=== PATIENT | female | born 1985 | race Caucasian/White ===

== ENCOUNTER 2017-05-09 11:52 | Observation (INO) | payer MEDICAID ==
[2017-05-09 13:33] LABS: PLATELET COUNT 162 10^3/uL (150-400)
--- NOTE | 2017-05-09 19:05 | GHP ---
[f rep st] PREOP HISTORY AND PHYSICAL DATE OF ADMISSION: 05/09/2017 ADMISSION DIAGNOSIS: Intrauterine at 34 and 1/7 weeks' gestation, with edema and leaking fluid, rule out rupture of membranes. INDICATIONS: Patient is a 31-year-old 10, para 2-0-7-2, who is 34 and 1 /7 weeks' gestation. Her estimated date of confinement is 06/19/2017, dated by a last menstrual period of 10/27/2016, consistent with a 6-week ultrasound. Patient has been receiving care in [place], and has recently relocated back to [place]. She had her care with her 1st at [facility] and [facility] in 2012. Patient has been receiving regular care in [place] and has an appointment to reestablish care with [facility] on . Patient just moved back from [place] last week. She called the office complaining of increased swelling and occasional blurry vision. She denied any nausea or vomiting. She also states that she has been having increased discharge and leaking fluid. She was instructed to proceed to Labor and Delivery but patient stated she was too busy and she called the office back today complaining of persistent increased discharge and swelling and did present to Labor and Delivery for an evaluation. Patient's blood pressures were stable. Her labs were obtained which were negative. SROM check was negative and a BD affirm is still pending. Patient was evaluated and labor precautions, SROM precautions and PIH precautions were reviewed with the patient, and the patient was discharged to home. She has a followup appointment scheduled for tomorrow morning to establish care at [facility]. MEDICAL HISTORY: Significant for anxiety and depression and OCD, questionable history of polycystic ovarian syndrome. She is GDM A2, on insulin with this current . History of pyelonephritis. MEDICATIONS: vitamin, insulin. SURGICAL HISTORY: section x2. Appendectomy. Right oophorectomy. [place] teeth extraction. Tonsillectomy and adenoidectomy. ALLERGIES: Codeine, which causes hives. SOCIAL HISTORY: Patient is . She lives with her and their 2 other children. She quit smoking with this positive test. She denies any alcohol or drug use. FAMILY MEDICAL HISTORY: Noncontributory. 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 She is a 10, para 2-0-7-2. Per her most recent records, patient has had 7 miscarriages. However, per her record from [facility] in 2012, patient had a voluntary termination of in 2010 as 1 of those instead of a miscarriage. She has had 2 sections. Her 1st section was in 08/2012, at [facility] at 40 weeks after a prolonged labor. She had a repeat in 02/2015 after attempting a vaginal after section. Patient denies any history of any abnormal Pap smears. She does have a history of genital herpes. REVIEW OF SYSTEMS: A 10-point review of systems is negative with the exception of the above-mentioned pertinent positives. She states there is positive movement. She is having increased discharge. She denies any vaginal bleeding. She denies any headaches. She does have occasional blurry vision. She denies any nausea or vomiting, fevers or chills. She does feel diffuse edema on her hands, face, and feet. OBJECTIVE: VITAL SIGNS: Stable. GENERAL APPEARANCE: Alert and oriented x3. NECK: Mobile and supple. HEART: Rate is regular-regular. LUNGS: Clear to auscultation bilaterally. ABDOMEN: Gravid, obese, nondistended, nontender. EXTREMITIES: Revealed no calf tenderness or edema. MUSCULOSKELETAL: Grossly intact. Neuromuscular is grossly intact. CERVICAL: Her cervix is long and closed. Speculum exam was performed. There was scant thin watery discharge. A fern test was negative. Nitrazine test was negative. AmniSure test was negative, and a BD affirm was collected and pending. heart tracing is appropriate for gestational age. She is having occasional contractions. DATA: [facility] labs were obtained which showed hemoglobin of 11.3, hematocrit of 32. Creatinine 0.6. AST is 12, ALT is 25. Lactate dehydrogenase is 299. She did test positive for Gardnerella, but that was found after patient left, and she will be treated for that with Flagyl at her new OB visit tomorrow. ASSESSMENT AND PLAN: 31-year-old 10, para 2-0-7-2, who is 34 and 1/7 weeks' gestation, who came in for -induced hypertension and spontaneous rupture of membrane check evaluation, and patient's blood pressures are stable. -induced hypertension precautions were discussed with patient. Patient is not ruptured. She does have bad bacterial vaginosis and will be treated for this tomorrow and managed expectantly. Labor precautions, kick counts, and -induced hypertension precautions were reviewed extensively with the patient, and the patient was discharged to home. Instructed to follow up tomorrow morning as scheduled. /[id number]/MODL MTDD
== END 2017-05-09 15:52 | disposition home or self-care (01) ==
LOC: FLD 11:52
PROVIDERS: ADMIT Obstetrics & Gynecology; ATTEND Obstetrics & Gynecology
DX: O23.593 Infection of other part of genital tract in pregnancy, third trimester (principal); O99.89 Other specified diseases and conditions complicating pregnancy, childbirth and the puerperium; B96.89 Other specified bacterial agents as the cause of diseases classified elsewhere; Z3A.34 34 weeks gestation of pregnancy
CPT/HCPCS: 82947-QW; G0378

== ENCOUNTER 2017-05-20 17:43 | Observation (INO) | payer MEDICAID ==
[2017-05-20] MEDS ORDERED: FAMOTIDINE 20 MG/2 ML SDV IVP ONE (18:00)
[2017-05-20] MEDS ORDERED: ONDANSETRON 4 MG/2 ML VIAL IVP PRN (18:00)
[2017-05-20] MEDS ORDERED: LR 1,000 ML IV SCH (18:00)
--- NOTE | 2017-05-20 18:01 | PDGENHP ---
History and Physical History and Physical: HPI: Patient is a 31yo @ 35-5wks that presents to L&D with complaints of nausea, vomiting, and diarrhea since this morning. She states she has not had an episode of vomiting since 1130 and diarrhea since 0930. She states she has been having some abdominal discomfort which has been occuring x 1 week. She denies any contractions, LOF, VB. EDC: 06/19/17 which is based on Ultrasound at 8 weeks. Her is complicated by: obesity, GDM (on insulin), rh negative, prior c /s x2, smoker, HSV, KRYSTYNA @34wks Review of Systems: Constitutional: Denies any fever, chills, or fatigue HEENT: denies any visual changes, difficulty swallowing, hearing loss Cardiovascular: Denies any chest pain, palpitations, leg swelling Respiratory: denies any cough, wheezing, or shortness of breathe GI: reports + nausea, vomiting, diarrhea : denies any dysuria, urgency, frequency, vaginal bleeding Musculoskeletal: denies any muscle or bone pain Skin: denies any rashes Neuro: denies any headache, seizures, lightheadedness, dizziness, or loss of consciousness Psychiatric: denies any depression, anxiety, or SI/HI thoughts HISTORY: Previous OB history: prior c/s x2 Past medical history: rh negative, HSV Past surgical history: c/s x2 Medications: PNV, insulin Allergies (list reaction): NKDA LABS: Rh: Negative ABS: Neg Rubella: Immune HbsAg: NR HIV: NR VDRL: NR 1hr: GDM GC: Neg Chlamydia: Neg Pap: Normal GBS: unknown PHYSICAL EXAM: Constitutional: WN, A&Ox3, obese HEENT: normocephalic atraumatic, supple Heart: RRR, no murmur Chest: CTA-B Abdomen: Soft, nontender, gravid SVE: deferred Extremities: trace edema, negative homans sign Neuro: grossly normal Psych: normal affect assessment: Reassuring FHTs, baseline 135 +accels, no decels, moderate variability Contractions: toco none Assessment: 1) [id number] with IUP@35-5wks (by 8wk US) 2) no evidence of labor 3) Gastroenteritis- improved with IV fluids and antiemetics 4) Cat 1 FHR tracing Plan: 1) d/c home at this time 2) rx zofran 4mg ODT given/BRAT/bland diet x 48hours 3) keep next sched appt in office 4) PTL prec/FKC discussed 5) danger/warning signs advised- aware when to return to L&D
[2017-05-20 18:34] LABS: PLATELET COUNT 160 10^3/uL (150-400)
[2017-05-20] MEDS ORDERED: FAMOTIDINE 20 MG/NACL 50 ML IV ONE (20:30)
== END 2017-05-20 21:09 | disposition home or self-care (01) ==
LOC: FLD 17:43
PROVIDERS: ADMIT Advanced Practice Midwife; ATTEND Advanced Practice Midwife
DX: O99.613 Diseases of the digestive system complicating pregnancy, third trimester (principal); K52.9 Noninfective gastroenteritis and colitis, unspecified; O24.414 Gestational diabetes mellitus in pregnancy, insulin controlled; F17.210 Nicotine dependence, cigarettes, uncomplicated; E66.9 Obesity, unspecified; O99.333 Smoking (tobacco) complicating pregnancy, third trimester; O99.213 Obesity complicating pregnancy, third trimester; Z3A.35 35 weeks gestation of pregnancy
CPT/HCPCS: G0378 ×2; J2405

== ENCOUNTER 2017-06-12 10:00 | Inpatient (IN) | payer MEDICAID ==
--- NOTE | 2017-06-08 08:31 | GHP ---
[f rep st] HISTORY AND PHYSICAL DATE OF ADMISSION: 06/13/2017 ADMITTING DIAGNOSES: 1. Intrauterine at 39-1/7 weeks. 2. Previous x2, for repeat . 3. Gestational diabetes A2, on insulin. HISTORY OF PRESENT ILLNESS: Patient is a 32-year-old, 10 para 2-0-7-2 at 39 weeks and 1 day with estimated due date 06/19/2017 by a 6 week ultrasound. Patient has a history of x2 and presents for repeat C- section. The patient does not want her tubes removed at this time. The patient presents with no complaints. Good movement noted. Denies any contractions, leakage of fluid or vaginal bleeding. The patient is a transfer of care to [facility] at 34 weeks from [place]. Patient has gestational diabetes A2 on insulin. Pt is followed by Endo and blood sugars are better controlled. She takes 12 units of Regular and 10 units NPH in the a.m. and p.m. Quad screen was negative. The patient is Rh negative and received RhoGAM at 28 weeks. The patient does have a history of depression, currently on no medications and mood has been stable throughout the . The patient did develop anemia with , and is tolerating iron. GBS culture is negative. She received Tdap during the . PAST OBSTETRICAL HISTORY: In 2003, 2006, and 2009 she had SABs. In 2010, she had 2 SAB's. In 2011, she had another 2 SAB's, In August 2012, she had a primary at 40+ weeks and had a 70 hour labor with AOD, and delivered a viable male infant, weighing 7 pounds, 15 ounces. In February 2015, she had a repeat C- section at 39-2/7 weeks, and delivered a viable female , weighing 7 pounds , 15 ounces. She had borderline gestational diabetes with this . PAST GYNECOLOGICAL HISTORY: Age of menarche 16, cycles every 28 days for 5-6 days. test 10/27/2016. Last menstrual period 09/17/2016. Patient does not have history of abnormal Pap smears. The patient does has a history of chlamydia and gonorrhea that were treated in 2007. She also has a history of HSV 1, gets outbreaks in and has had 2 oral herpes outbreaks this . The patient does not have a history of genital lesions. The patient has endometriosis that was diagnosed in 2015 diagnosed and PCOS that was diagnosed at age 20. CURRENT MEDICATIONS: Insulin-Regular and NPH, vitamins and iron. ALLERGIES: Codeine. PAST MEDICAL HISTORY: History of pyelonephritis in 2017, history of depression. PAST SURGICAL HISTORY: [place] teeth extraction. Tonsillectomy and adenoidectomy. x2 in 2012, 2014. Appendectomy in 2012. In 1999, she had a right oophorectomy. Right ankle injury since fall in 2012, but no surgery. SOCIAL HISTORY: Patient is . She lives with her and their 2 children. Does admit to 1 - 1-1/2 pack a day smoking history since 2001, but stopped during . Denies any alcohol or illicit drug use. She did have to 2 glasses of wine prior to finding out she was . FAMILY HISTORY: Maternal grandmother with breast cancer late 40s, metastasized to bone and brain and in 60s. LABS: Blood type A negative, antibody negative. Received RhoGAM 03/16, again 10/28/2016. Early 1 hour glucose 144. RPR nonreactive. Rubella immune. Hepatitis B surface antigen negative. HIV negative. Urine culture negative. Pap negative. Chlamydia and gonorrhea cultures all negative. Quad screen negative. H and H 11.1 and 32.6. One-hour Glucola was 168. GBS culture is negative. REVIEW OF SYSTEMS: 10-point review of systems is negative. Pertinent positives noted in HPI. PHYSICAL EXAM: GENERAL: Patient is alert and oriented x3. Well-nourished, well-developed female in no apparent distress. CARDIOVASCULAR: Regular rate and rhythm. LUNGS: Clear to auscultation bilaterally. ABDOMEN: Gravid, soft , nontender, nondistended. PELVIC: Deferred. EXTREMITIES: Normal to inspection without calf tenderness or edema. ASSESSMENT/PLAN: Patient is a 32-year-old, 10, para 2-0-7-2 at 39 and 1 weeks with history of previous x2 for repeat , and gestational diabetes A2 on insulin. 1. Admit to Labor and Delivery. 2. Surgical consents are on the chart. Will review with patient at bedside to make sure she understands all complications of surgery and wants to proceed. 3. Antibiotics engineer second assistant to OR. 4. Sequential compression devices for deep venous thrombosis prophylaxis. 5. We will closely monitor blood sugars throughout the and postop and treat accordingly. /[id number]/MODL MTDD
[2017-06-13] MEDS ORDERED: LR 500 ML IV ONE (05:32)
[2017-06-13] MEDS ORDERED: ceFAZolin 2 GM/DEXTROSE 100 ML IV ONE (05:32)
[2017-06-13] MEDS ORDERED: CITRIC ACID/SODIUM CITRATE 30 ML UDCUP PO ONE (05:32)
[2017-06-13] MEDS ORDERED: LR 1,000 ML IV SCH (05:32)
[2017-06-13 06:19] LABS: PLATELET COUNT 182 10^3/uL (150-400)
--- NOTE | 2017-06-13 07:15 | PREANESOB ---
Obstetric Pre-Anesthesia Info - General Info Proposed Procedure: Repeat C Section. : 10 Para: 2 YVONNE: 06/19/17 Gestational Age: 39 week(s) and 1 day(s) - Info Status: Full Term Monitors: External FHR Baseline (bpm): 140 FHR Pattern: Reassuring (14) - Labor Status Indications for Current Section: Elective/Repeat Labor Epidural: No Anesthesia ROS: Prior spinal anesthesia with difficulty. Allergies/Adverse Reactions: Allergy/AdvReac Type Severity Reaction Status Date / Time codeine [Codeine] Allergy Itching/NICO Verified 06/13/17 05:55 H Home Medications: Medication Instructions Recorded Insulin NPH Hum/Reg Insulin Hm 12 units SQ BID 05/09/17 [Novolin 70-30 100 Unit/ml Vial] Insulin NPH Human [HumuLIN N] 8 unit SQ BID 05/09/17 Ondansetron Odt [Zofran Odt 4 mg 4 mg PO Q4 5 Days #20 tab 05/20/17 (*)] FOLIC ACID 1 PO DAILY 06/13/17 IRON PO DAILY 06/13/17 Visit Medications: Generic Name Dose Route Start Last Admin Trade Name Freq PRN Reason Stop Dose Admin Lactated Ringer's 1,000 mls @ 125 mls/hr 06/13/17 05:32 Lr IV 06/14/17 05:31 CONT QIANA Discontinued Medications Generic Name Dose Route Start Last Admin Trade Name Freq PRN Reason Stop Dose Admin Citric Acid/Sodium Citrate 30 ml 06/13/17 05:32 Bicitra PO 06/13/17 05:33 ONCALL ONE Cefazolin Sodium/Dextrose 100 mls @ 200 mls/hr 06/13/17 05:32 Ancef 2 Gm (Premix) IV 06/13/17 06:01 ONCALL ONE Protocol Lactated Ringer's 500 mls @ 0 mls/hr 06/13/17 05:32 Lr IV 06/13/17 05:33 ONCE ONE As Directed - Anesthesia History Response to Local Anesthetics: Normal Anesthesia & Operative History: No Prior Problems Family Anesthesia History: Negative - Social History Substance Use/Abuse: Denies - Vital Signs Height/Weight (Nursing): Height 157.48 cm Weight 120.202 kg - Focused Exam Neck exam: FROM Mallampati Score: Class 2 Mouth exam: normal dental/mouth exam Pulmonary: no respiratory distress Cardiovascular: regular rate and rhythym Labs: 06/13/17 05:45 Patient ABO/Rh A NEGATIVE 06/13/17 05:45 - Plan Anesthetic Plan: SAB Consent Signed and on Chart: Yes Patient/Guardian Understands and Agrees to Plan: Yes
[2017-06-13] MEDS ORDERED: fentaNYL 100 MCG/2 ML INJ ONE (07:22)
[2017-06-13] MEDS ORDERED: morphINE PF 5 MG/10 ML INJ ONE (07:22)
--- NOTE | 2017-06-13 07:39 | PDHPUP ---
History & Physical Update H&P update statement: This history and physical update is based on an assessment of the patient which was completed after admission or registration (within 24 hours), but prior to the surgery/procedure. H&P update: H&P reviewed & patient examined, no change in patient's condition since H&P completed
[2017-06-13] MEDS ORDERED: METHYLERGONOVINE MAL 0.2 MG/ML INJ ONE (07:44)
[2017-06-13] MEDS ORDERED: MISOPROSTOL 200 MCG TAB ONE (07:44)
[2017-06-13] MEDS ORDERED: PROPOFOL 200 MG/20 ML VIAL ONE (09:01)
[2017-06-13] MEDS ORDERED: DEXAMETHASONE 4 MG/ML VIAL ONE ×2 (09:02→09:03)
[2017-06-13] MEDS ORDERED: OXYTOCIN 100 UNITS/10 ML VIAL ONE (09:02)
[2017-06-13] MEDS ORDERED: PHENYLEPHRINE HCL 100 MCG/ML SYR ONE ×2 (09:02→09:22)
[2017-06-13] MEDS ORDERED: ONDANSETRON 4 MG/2 ML VIAL ONE ×2 (09:02→09:03)
--- NOTE | 2017-06-13 09:58 | POSTANESTH ---
Post Anesthetic Evaluation Cardiovascular Status: Normal, Stable, Similar to Pre-Op Cond Respiratory Status: Normal, Stable, Similar to Pre-op Cond. Level of Consciousness/Mental Status: Can Participate in Eval, Alert and Oriented Pain Control: Adequate, Prn Tx Ordered Nausea/Vomiting Control: Adequate, Prn Tx Ordered Complications Possibly Related to Anesthesia: None Noted
[2017-06-13] MEDS ORDERED: NALOXONE HCL 0.4 MG/ML INJ IVP PRN (09:59)
[2017-06-13] MEDS ORDERED: LACTULOSE 20 GM/30 ML UDCUP PO PRN (10:43)
[2017-06-13] MEDS ORDERED: MAGNESIUM HYDROXIDE 30 ML UDCUP PO PRN (10:43)
[2017-06-13] MEDS ORDERED: POLYETHYLENE GLYCOL 3350 17 GM PKT PO PRN (10:43)
[2017-06-13] MEDS ORDERED: DOCUSATE SODIUM 100 MG CAP PO PRN (10:43)
[2017-06-13] MEDS ORDERED: BISACODYL 10 MG SUPP PR PRN (10:43)
[2017-06-13] MEDS ORDERED: PROMETHAZINE HCL 25 MG/ML INJ IVP PRN (10:43)
--- NOTE | 2017-06-13 10:51 | OBDEL ---
Info Type: Repeat Presentation at Delivery: Vertex L&D Analgesia/Anesthesia Type: Spinal GBS+: No Intrapartum Medications: Generic Name Dose Route Start Last Admin Trade Name Freq PRN Reason Stop Dose Admin Lactated Ringer's 1,000 mls @ 125 mls/hr 06/13/17 05:32 06/13/17 07:34 Lr IV 06/14/17 05:31 1,000 mls CONT QIANA Administration Discontinued Medications Generic Name Dose Route Start Last Admin Trade Name Freq PRN Reason Stop Dose Admin Citric Acid/Sodium Citrate 30 ml 06/13/17 05:32 06/13/17 07:39 Bicitra PO 06/13/17 05:33 30 ml ONCALL ONE Administration Cefazolin Sodium/Dextrose 100 mls @ 200 mls/hr 06/13/17 05:32 06/13/17 07:42 Ancef 2 Gm (Premix) IV 06/13/17 06:01 100 mls ONCALL ONE Administration Protocol Lactated Ringer's 500 mls @ 0 mls/hr 06/13/17 05:32 06/13/17 07:33 Lr IV 06/13/17 05:33 500 mls ONCE ONE Administration As Directed - Care Provider Personal Vehicle Advisor/HEARING IMPAIRED TEACHER: Jennifer Manzanares - Hospital Course Intrapartum: 06/13/17 10:47 Previous c/s x 2; GDMA2 on insulin Indications for Delivery: Elective (Previous c/s x 2; GDMA2 on insulin) Vaginal Delivery - Labor and Delivery Onset of Contractions Date: 06/13/17 Onset of Contractions Time: 05:00 Operative Report - Delivery Pre-op Diagnoses: IUP @ 39 1/7 weeks with previous c/s x 2 and GDMA2 on insulin Post-op Diagnoses: IUP @ 39 1/7 weeks with previous c/s x 2 and GDMA2 on insulin History of Prior Section: Yes Number of Prior Sections: 2 Indications for Prior Section: Arrest of Dilation Indications for Current Section: Elective/Repeat Procedure: Scheduled, Low Transverse Surgeon: Josseline Hensley Spa Consultant: Mary Dale Anesthesiologist: Raza Saini Complications: Nucal Cord (loose x 1, slipped over head) Findings: A viable male born at 0850 in cephalic presentation with 8 and 9 Apgars weighing 3512 gms. Nuchal cord x 1-loose and slipped over head. Cord clamping was delayed x 60 sec and then clamped x 2 and cut. to [facility]. Cord blood was obtained. Placenta delivered spontaneously intact with 3-vc. Grossly normal appearing uterus, L tube and L ovary. A thin WOODY noted especially posteriorly near bladder. Specimen(s)/Path: Other (Specify) (none) IV Fluid (ml): 4,000 EBL: 800 cc UO: 75 cc clear urine [place] Data YVONNE: 06/19/17 Gestational Age: 39 week(s) and 1 day(s) [place] Delivery Date: 06/13/17 Delivery Time: 08:50 Sex of Infant: Male Weight (gm): 3512 g Score (1 Min): 8 Score (5 Min): 9 ICD10 Worksheet Patient Problems: Problems Problem Status Onset GDM, class A2 Acute Previous delivery affecting Acute Status post repeat low transverse section Acute Gestational diabetes mellitus (GDM) Acute
[2017-06-13] MEDS ORDERED: KETOROLAC 30 MG/1 ML SDV ONE (11:08)
[2017-06-13] MEDS: KETOROLAC 30 MG/1 ML SDV IVP PRN ×3 (11:09→22:58)
[2017-06-13] MEDS: ONDANSETRON 4 MG/2 ML VIAL IVP PRN ×2 (13:31→17:18)
--- NOTE | 2017-06-13 14:38 | GOP ---
[f rep st] OPERATIVE REPORT DATE OF OPERATION: 06/13/2017 SURGEON: Josseline Hensley DO SOCK KNITTING MACHINE OPERATOR: Mary Dale MD. ANESTHESIA: Spinal anesthesia. ANESTHESIOLOGIST: Raza Saini MD. PREOPERATIVE DIAGNOSIS: Intrauterine at 39-1/7 weeks gestation with previous x2; and gestational diabetes mellitus, A2, on insulin. POSTOPERATIVE DIAGNOSIS: Intrauterine at 39-1/7 weeks gestation with previous x2; and gestational diabetes mellitus, A2, on insulin. PROCEDURE PERFORMED: A repeat low transverse section. FINDINGS: A viable male in cephalic presentation born at 8:50 a.m. with 8/9 Apgars, weighing 3512 g. Nuchal cord x1, loose and slipped over head. Cord clamping was delayed for 60 seconds, then clamped x2, and cut. Infant to awaiting nurse practitioner. Cord blood was obtained. Placenta delivered spontaneously intact with 3-vessel cord. A grossly normal-appearing uterus, b/l tube and left ovary. Thin lower segment noted, especially posteriorly near the bladder. ESTIMATED BLOOD LOSS: 800 cc. INDICATIONS: Patient is a 32-year-old, 10, para 2-0-7-2, at 39 weeks and 1 day with estimated due date 06/19/2017 by 6-week ultrasound. Patient has a history of x2. Presents for a repeat . Patient does want her tubes removed at this time. Patient has Gestational diabetes A2, on insulin. She is followed by Endo, and blood sugars are well-controlled. She takes both 12 units of regular, 10 units of NPH in the morning and at night. The patient declines a trial of labor and desires a repeat . We discussed risks, benefits, alternatives with the patient including, but not limited to, bleeding, infection, damage to surrounding organs. Patient understands all risks at this time, wants to proceed with surgery. DESCRIPTION OF PROCEDURE: Patient was taken to the operating room, where she was given spinal anesthesia with some difficulty, also with the aid of propofol. She was prepped, draped in the usual sterile manner, and placed in supine position with leftward tilt. There was a large pannus that we taped to allow better visualization of the previous Pfannenstiel skin incision. Caceres catheter was placed in her bladder at this time. After adequate anesthesia was assured, a new Pfannenstiel skin incision was made just above the old scar for better wound healing. This was made with a scalpel, and carried down to layer of fascia with the Bovie. The fascia was then incised in midline. The fascial incision was extended laterally with Iyer scissors. Superior aspect of the fascial incision was grasped with Chris clamps, elevated, and rectus muscles dissected off sharply. The inferior aspect of the fascial incision was then grasped with Chris clamps, elevated, and rectus muscles dissected off sharply. Rectus muscles were then in the midline. Peritoneum was then visualized, entered both sharply and bluntly, extended superiorly and inferiorly with good visualization of the bladder. Bladder blade was then inserted. We visualized the vesicouterine peritoneum and had good visualization of the bladder. A bladder flap was not created. Bladder blade was reinserted. A low transverse uterine incision was then made with a knife. Incision was extended anteriorly and posterior digitally. There was clear amniotic fluid noted upon entry of the amniotic sac. Baby was noted to be in cephalic presentation. Head was delivered after loose nuchal cord was slipped over the had followed by the shoulders. Mouth and nose were bulb-suctioned. Cord clamping was delayed for 60 seconds, then clamped x2 and cut. Infant handed off to awaiting nurse practitioner. Cord blood was obtained. Placenta was then removed spontaneously intact with 3-vessel cord. Uterus was exteriorized, cleared of all clots and debris. Uterine incision was then repaired with 0 Vicryl in a running, locked fashion. Hemostasis was noted. A 2nd imbricating layer of sutures was performed with 0 Vicryl. Hemostasis was noted. Uterus was then returned to the abdomen. Gutters were cleared of all clots and debris. Reinspection of the uterine incision revealed slight oozing, so at this point, a [id number] stitch of 0 Vicryl, as well as Shanita was placed, and hemostasis was achieved. The rectus muscles were then reapproximated with 3-0 Vicryl in an inverted mattress fashion. The fascia was then closed with 0 Vicryl in a running fashion. Hemostasis was noted. The skin was then closed with 4-0 Vicryl on a Hammad needle. Mastisol and Steri- Strips were applied. Patient tolerated the procedure well. No complications noted. Sponge, lap, needle, and instrument counts correct x2. Patient was then taken to recovery room in stable condition. IV FLUIDS: 4000 cc of LR. URINE OUTPUT: 75 cc of clear urine at the end of the procedure. /[id number]/MODL MTDD
[2017-06-13] MEDS: SENNOSIDES/DOCUSATE SODIUM TAB PO SCH (22:07)
[2017-06-14] MEDS: KETOROLAC 30 MG/1 ML SDV IVP PRN (04:56)
--- NOTE | 2017-06-14 11:25 | OBPP ---
Progress Note Assessment/Plan: Assessment: 32 y/o POD #1 s/p Rpt LTCS doing well. Plan: Begin Bifera BID. Ambulate with assistance. Po pain meds prn. support and routine POC. 06/14/17 11:24 Subjective/ Course: 06/14/17 11:21 Pt is doing well this am. She has good pain control with Toradol and will try Ibuprofen this pm. She is trying to avoid narcotics but will take them prn. She is ambulating, voiding without difficulty and has min lochia. She showered today and denies dizziness or light headedness. Objective: 06/13/17 05:45 06/13/17 05:45 Patient ABO/Rh A NEGATIVE 06/13/17 10:58 Temp Pulse Resp BP Pulse Ox 36.4 C 71 16 101/61 92 06/14/17 08:00 06/14/17 08:00 06/14/17 08:00 06/14/17 08:00 06/14/17 05:07 Uterine Position/Fundal Height: Umbilicus -2 Uterine Tone: Firm Physical Exam - Physical Exam General Appearance: alert, no apparent distress Neck: non-tender, full range of motion, supple Respiratory: chest non-tender, lungs clear, normal breath sounds Cardiac/Chest: regular rate, rhythm Abdomen: normal bowel sounds, incision (c/d/i) Extremities: swelling (no), Georgina's sign (neg)
[2017-06-14] MEDS: IBUPROFEN 600 MG TAB PO PRN ×2 (12:28→18:55)
[2017-06-14] MEDS: HYDROCODONE/APAP 5/325 TAB PO PRN ×3 (12:28→21:19)
[2017-06-14] MEDS: SENNOSIDES/DOCUSATE SODIUM TAB PO SCH ×2 (15:28→21:19)
[2017-06-14] MEDS: IRON POLYSAC/IRON HEME 28 MG TAB PO SCH (21:18)
[2017-06-15] MEDS: HYDROCODONE/APAP 5/325 TAB PO PRN ×4 (01:27→14:31)
[2017-06-15] MEDS: IBUPROFEN 600 MG TAB PO PRN ×3 (01:27→14:24)
[2017-06-15] MEDS: SIMETHICONE 80 MG TAB CHEW PO PRN ×2 (06:10→14:57)
[2017-06-15] MEDS: IRON POLYSAC/IRON HEME 28 MG TAB PO SCH (08:01)
[2017-06-15] MEDS: SENNOSIDES/DOCUSATE SODIUM TAB PO SCH (08:01)
[2017-06-15] MEDS ORDERED: MAGNESIUM HYDROXIDE 30 ML UDCUP PO ONE (10:22)
--- NOTE | 2017-06-15 11:17 | OBGCSDC ---
General Delivery Information - General Info : 10 Para: 3 Abortions: 7 Type: Repeat L&D Analgesia/Anesthesia Type: Spinal Admission Date: 06/13/17 Labs: Patient ABO/Rh A NEGATIVE 06/13/17 10:58 Hct 26.9 % (38.0-47.0) L 06/14/17 12:30 - Hospital Course Intrapartum: 06/13/17 10:47 Previous c/s x 2; GDMA2 on insulin : 06/14/17 11:21 Pt is doing well this am. She has good pain control with Toradol and will try Ibuprofen this pm. She is trying to avoid narcotics but will take them prn. She is ambulating, voiding without difficulty and has min lochia. She showered today and denies dizziness or light headedness. 06/15/17 11:12 S) Pt doing well, reports min pain- but does state she is having intermittent RUQ pain, worse with nursing. She feels like it is gas pain. She denies any heavy bleeding. she is ambulating and voiding without difficulty. She reports having BM this morning. She is . She desires discharge home today. O) VSS, afebrile constitutional: WNWF, A&Ox3 HEENT: normocephalic, atraumatic, supple Heart: RRR, No murmur Chest: CTA-B Abdomen: Soft, nontender Uterus: Firm at U-2 Lochia: Minimal rubra Perineum: Intact, healing well Extremities: Trace edema, and negative Georgina's sign Neuro: Grossly normal A) 32-year-old S/P PPD#2 P) Discharge home today Continue Pelvic rest x6wks Discussed danger signs (infection, preeclampsia, depression, heavy bleeding, etc ) RTO in 4/6 weeks 06/15/17 19:22 - Delivery Providers Surgeon: Josseline Hensley Net Repairer: [place] Anesthesiologist: Raza Saini - Delivery Number of Prior Sections: 2 Indications for Current Section: Elective/Repeat Surgical Procedures: Scheduled, Low Transverse Intra-op Complications: Nucal Cord (loose x 1, slipped over head) EBL: 800 cc UO: 75 cc clear urine Vass Data YVONNE: 06/19/17 Gestational Age: 39 week(s) and 3 day(s) [place] Delivery Date: 06/13/17 Delivery Time: 08:50 Sex of Infant: Male Weight (gm): 3512 g Score (1 Min): 8 Score (5 Min): 9 Discharge Information - Discharge Information Prescriptions: Ibuprofen [Motrin (*)] 600 mg PO Q6HRS PRN #60 tab PRN Reason: Inflammation Hydrocodone/APAP 5/325 [[place] 5/325 (*)] 1 - 2 tab PO Q4-6PRN PRN #30 tab PRN Reason: Pain, Moderate Iron Polysacch/Iron Heme Polyp [Bifera] 28 mg PO BID #60 tab Condition: Good
[2017-06-15 12:01] VITALS: RESP 18; TEMP 97.7; O2SAT 96
[2017-06-15 16:29] VITALS: BP 114/76; PULSE 88
== END 2017-06-15 15:50 | disposition home or self-care (01) | DRG 766 ==
LOC: FLD 06-13 05:01 → FOB 06-13 11:30
PROVIDERS: ADMIT Obstetrics & Gynecology; ATTEND Obstetrics & Gynecology
PROC: 10D00Z1 Extraction of Products of Conception, Low, Open Approach (ICD-10-PCS; principal; 2017-06-13)
DX: O34.219 Maternal care for unspecified type scar from previous cesarean delivery (principal); O24.414 Gestational diabetes mellitus in pregnancy, insulin controlled; O69.81X0 Labor and delivery complicated by cord around neck, without compression, not applicable or unspecified; O26.893 Other specified pregnancy related conditions, third trimester; Z67.91 Unspecified blood type, Rh negative; Z3A.39 39 weeks gestation of pregnancy; Z37.0 Single live birth
CPT/HCPCS: 82947-QW; J0690; J1100; J1885; J2210; J2274; J2370; J2405; J2590; J2704; J3010